=== PATIENT | female | born 1990 | race Two or more races ===

== ENCOUNTER 2020-06-20 08:46 | Outpatient (REF) | payer OTHER, SELFPAY ==
[2020-06-21 10:07] LABS: BV Int Neg Control Negative (Negative); BV Int Pos Control Positive (Positive)
[2020-06-25 11:36] LABS: CT PCR NOT DETECTED (Not Detect.); NG PCR NOT DETECTED (Not Detect.)
[2020-06-27 05:48] LABS: HPV 16 RNA NOT DETECTED (NOT DETECTED); HPV mRNA E6/E7 rflx Detected (Not Detected)
== END 2020-06-20 08:47 | disposition home or self-care (01) ==
LOC: HO.LAB 08:46
PROVIDERS: PCP Internal Medicine; Visit Provider Advanced Practice Midwife
DX: Z01.419 Encounter for gynecological examination (general) (routine) without abnormal findings (principal); N89.8 Other specified noninflammatory disorders of vagina; F17.210 Nicotine dependence, cigarettes, uncomplicated; Z11.8 Encounter for screening for other infectious and parasitic diseases; Z11.3 Encounter for screening for infections with a predominantly sexual mode of transmission
CPT/HCPCS: 87480; 87491; 87510; 87591; 87624; 87625; 87660; 88141; 88142

== ENCOUNTER → 2020-07-22 11:53 | Outpatient (BNVA) | payer OTHER, SELFPAY | PROVIDERS: PCP Internal Medicine; Visit Provider Advanced Practice Midwife | DX: Z76.89 Persons encountering health services in other specified circumstances (principal) ==

== ENCOUNTER 2020-08-16 07:31 | Outpatient (REF) | payer OTHER, SELFPAY | END 2020-08-16 07:32 | disposition home or self-care (01) | LOC: HO.LAB 07:31 | PROVIDERS: Visit Provider Internal Medicine | DX: Z20.822 Contact with and (suspected) exposure to COVID-19 (principal) | CPT/HCPCS: 36415; C9803; U0003 ==

== ENCOUNTER 2020-10-01 08:52 | Outpatient (REF) | payer OTHER, SELFPAY ==
[2020-10-01 14:18] LABS: CT PCR NOT DETECTED (Not Detect.); NG PCR DETECTED (Not Detect.)
[2020-10-02 09:04] LABS: BV Int Neg Control Negative (Negative); BV Int Pos Control Positive (Positive)
== END 2020-10-01 08:53 | disposition home or self-care (01) ==
LOC: HO.LAB 08:52
PROVIDERS: Visit Provider Advanced Practice Midwife
DX: Z01.419 Encounter for gynecological examination (general) (routine) without abnormal findings (principal); N39.0 Urinary tract infection, site not specified; R87.618 Other abnormal cytological findings on specimens from cervix uteri; Z20.2 Contact with and (suspected) exposure to infections with a predominantly sexual mode of transmission; N76.0 Acute vaginitis; B37.3 Candidiasis of vulva and vagina; F17.210 Nicotine dependence, cigarettes, uncomplicated; Z91.013 Allergy to seafood
CPT/HCPCS: 87480; 87491; 87510; 87591; 87660; 99212

== ENCOUNTER → 2020-10-17 13:09 | Outpatient (BNVA) | payer OTHER, SELFPAY | PROVIDERS: PCP Internal Medicine; Visit Provider Advanced Practice Midwife | DX: A54.9 Gonococcal infection, unspecified (principal) | CPT/HCPCS: 96372; 99211; J0696 ==

== ENCOUNTER 2020-10-23 15:52 | Outpatient (REF) | payer OTHER, SELFPAY | END 2020-10-23 15:53 | disposition home or self-care (01) | LOC: HO.LAB 15:52 | PROVIDERS: Visit Provider Internal Medicine | DX: Z20.822 Contact with and (suspected) exposure to COVID-19 (principal) | CPT/HCPCS: C9803; U0003; U0005 ==

== ENCOUNTER 2020-11-20 11:34 | Outpatient (REF) | payer OTHER, MEDICAID, SELFPAY ==
[2020-11-22 20:41] LABS: TS Negative Control Passed; TS Panel A 0; TS Panel B 0; TS Positive Control Passed; TSpotTB Negative (SeeBelow)
== END 2020-11-20 11:35 | disposition home or self-care (01) ==
LOC: HO.HMGCLDS 11:34
PROVIDERS: PCP Internal Medicine; Visit Provider Nurse Practitioner Family
DX: Z02.1 Encounter for pre-employment examination (principal); Z11.1 Encounter for screening for respiratory tuberculosis
CPT/HCPCS: 36415; 86481

== ENCOUNTER 2020-12-17 10:45 | Outpatient (REF) | payer OTHER, SELFPAY ==
[2020-12-17 19:28] LABS: CT PCR NOT DETECTED (Not Detect.); NG PCR NOT DETECTED (Not Detect.)
[2020-12-18 07:42] LABS: HIV AB/AG Nonreactive (Nonreactive); HIV Num 1 0.08 S/CO (0.00-0.99); ~HepC Num1 0.22 S/CO (0.00-0.79); ~Hepatitis C Antibody Nonreactive (Nonreactive)
[2020-12-18 07:50] LABS: HBsAGNum1 0.16 S/CO (0.00-0.99); Hepatitis B Surface Antigen Negative (Negative)
[2020-12-18 08:42] LABS: BV Int Neg Control Negative (Negative); BV Int Pos Control Positive (Positive)
[2020-12-18 08:48] LABS: Syphilis Screen Nonreactive (Nonreactive)
== END 2020-12-17 10:46 | disposition home or self-care (01) ==
LOC: HO.LAB 10:45
PROVIDERS: PCP Internal Medicine; Visit Provider Advanced Practice Midwife
DX: A54.9 Gonococcal infection, unspecified (principal); Z20.2 Contact with and (suspected) exposure to infections with a predominantly sexual mode of transmission
CPT/HCPCS: 36415; 86780; 86803; 87340; 87389; 87480; 87491; 87510; 87591; 87660; 99212

== ENCOUNTER 2021-06-26 15:02 | Outpatient (REF) | payer OTHER, SELFPAY ==
[2021-06-27 01:10] LABS: CT PCR NOT DETECTED (Not Detect.); NG PCR NOT DETECTED (Not Detect.)
[2021-06-27 11:38] LABS: BV Int Neg Control Negative (Negative); BV Int Pos Control Positive (Positive)
[2021-06-30 22:07] LABS: HPV mRNA E6/E7 rflx Not Detected (Not Detected)
== END 2021-06-26 15:03 | disposition home or self-care (01) ==
LOC: HO.LAB 15:02
PROVIDERS: PCP Internal Medicine; Visit Provider Advanced Practice Midwife
DX: Z01.419 Encounter for gynecological examination (general) (routine) without abnormal findings (principal); N89.8 Other specified noninflammatory disorders of vagina; R10.2 Pelvic and perineal pain; N92.0 Excessive and frequent menstruation with regular cycle; N93.9 Abnormal uterine and vaginal bleeding, unspecified; F17.210 Nicotine dependence, cigarettes, uncomplicated; Z20.2 Contact with and (suspected) exposure to infections with a predominantly sexual mode of transmission
CPT/HCPCS: 87480; 87491; 87510; 87591; 87624; 87660; 88142

== ENCOUNTER 2021-06-26 16:02 | Outpatient (REF) | payer OTHER, SELFPAY ==
[2021-06-27 08:34] LABS: HIV AB/AG Nonreactive (Nonreactive); HIV Num 1 0.08 S/CO (0.00-0.99); ~HepC Num1 0.36 S/CO (0.00-0.79); ~Hepatitis C Antibody Nonreactive (Nonreactive)
[2021-06-27 09:08] LABS: Syphilis Screen Nonreactive (Nonreactive)
[2021-06-27 09:10] LABS: HBc Num1 0.11 S/CO (0.00-0.79); Hepatitis B Core Antibody Nonreactive (Nonreactive)
== END 2021-06-26 16:03 | disposition home or self-care (01) ==
LOC: HO.LAB 16:02
PROVIDERS: Visit Provider Advanced Practice Midwife
DX: N89.8 Other specified noninflammatory disorders of vagina (principal); R01.2 Other cardiac sounds; Z20.2 Contact with and (suspected) exposure to infections with a predominantly sexual mode of transmission
CPT/HCPCS: 36415; 86704; 86780; 86803; 87389

== ENCOUNTER 2021-08-12 09:34 | Outpatient (REF) | payer OTHER, SELFPAY ==
[2021-08-12 13:47] LABS: CT PCR NOT DETECTED (Not Detect.); NG PCR NOT DETECTED (Not Detect.)
[2021-08-13 08:58] LABS: BV Int Neg Control Negative (Negative); BV Int Pos Control Positive (Positive)
== END 2021-08-12 09:35 | disposition home or self-care (01) ==
LOC: HO.LAB 09:34
PROVIDERS: PCP Internal Medicine; Visit Provider Advanced Practice Midwife
DX: N89.8 Other specified noninflammatory disorders of vagina (principal); F32.9 Major depressive disorder, single episode, unspecified; F41.9 Anxiety disorder, unspecified
CPT/HCPCS: 87480; 87491; 87510; 87591; 87660; 99212

== ENCOUNTER 2022-03-11 13:47 | Outpatient (REF) | payer OTHER, SELFPAY ==
[2022-03-11 15:09] LABS: Appearance Urine Cloudy; Color Urine Yellow; Glucose Urine UA Negative (Negative); Leukocyte Esterase Urine Large (3+) (Negative); Nitrite Urine Negative (Negative); PH 7.5 (5.0-8.0); Urine Blood Negative (Negative); Urine Ketones Trace mg/dL (Negative); Urine Protein 30 (1+) mg/dL (Neg-Trace)
[2022-03-11 15:12] LABS: Bacteria Urine 4+ (None Seen); Hyaline Casts Urine 0-2 /LPF (0-2); RBC Urine 0-2 /HPF (0-2); Squamous Epithelial Cell Urine 0-2 /HPF (0-2); UACC Culture Trigger YES; WBC Urine >50 /HPF (0-5)
== END 2022-03-11 13:48 | disposition home or self-care (01) ==
LOC: HO.LAB 13:47
PROVIDERS: PCP Internal Medicine; Visit Provider Internal Medicine
DX: R30.0 Dysuria (principal)
CPT/HCPCS: 81001; 87086; 87088; 87186

== ENCOUNTER 2022-05-19 10:14 | Outpatient (REF) | payer OTHER, SELFPAY | END 2022-05-19 10:15 | disposition home or self-care (01) | LOC: HO.LNP 10:14 | PROVIDERS: Visit Provider Advanced Practice Midwife | DX: N89.8 Other specified noninflammatory disorders of vagina (principal); R39.15 Urgency of urination; Z20.2 Contact with and (suspected) exposure to infections with a predominantly sexual mode of transmission | CPT/HCPCS: 99212 ==

== ENCOUNTER 2022-05-19 10:19 | Outpatient (REF) | payer OTHER, SELFPAY ==
[2022-05-19 12:03] LABS: HBc Num1 0.05 S/CO (0.00-0.79); HIV AB/AG Nonreactive (Nonreactive); HIV Num 1 0.08 S/CO (0.00-0.99); Hepatitis B Core Antibody Nonreactive (Nonreactive); ~HepC Num1 0.15 S/CO (0.00-0.79); ~Hepatitis C Antibody Nonreactive (Nonreactive)
[2022-05-19 18:29] LABS: CT PCR NOT DETECTED (Not Detect.); NG PCR NOT DETECTED (Not Detect.)
[2022-05-20 07:57] LABS: Syphilis Screen Nonreactive (Nonreactive)
[2022-05-20 13:06] LABS: BV Int Neg Control Negative (Negative); BV Int Pos Control Positive (Positive)
== END 2022-05-19 10:20 | disposition home or self-care (01) ==
LOC: HO.LAB 10:19
PROVIDERS: PCP Internal Medicine; Visit Provider Advanced Practice Midwife
DX: N89.8 Other specified noninflammatory disorders of vagina (principal); Z20.2 Contact with and (suspected) exposure to infections with a predominantly sexual mode of transmission
CPT/HCPCS: 86704; 86780; 86803; 87389; 87480; 87491; 87510; 87591; 87660

== ENCOUNTER 2022-11-17 09:57 | Outpatient (REF) | payer OTHER, SELFPAY ==
--- NOTE | ~2022-11-17 | XR_ITS ---
EXAMINATION: XR CERVICAL SPINE CLINICAL INFORMATION: Neck pain. COMPARISON: None available. TECHNIQUE: 3 views of the cervical spine were obtained. FINDINGS: There is straightening of the normal cervical lordosis with normal spinal alignment. The vertebral bodies and intervertebral disc spaces are unremarkable. There is no acute fracture. The odontoid process is intact. The soft tissues are unremarkable.. XR/XR cervical spine 3V IMPRESSION: Straightening of the normal cervical lordosis may be secondary to positioning and/or muscle spasm. No acute fracture or significant degenerative changes.
--- NOTE | ~2022-11-17 | XR_ITS ---
EXAMINATION: XR SHOULDER, RIGHT CLINICAL INFORMATION: Right shoulder pain. COMPARISON: None available. TECHNIQUE: Three views of the right shoulder. FINDINGS: The bones and soft tissues are normal. No fracture. Glenohumeral and acromioclavicular alignment is anatomic with normal joint space. No abnormal soft tissue calcifications. XR/XR shoulder RT min 2V IMPRESSION: Unremarkable right shoulder.
== END 2022-11-17 09:58 | disposition home or self-care (01) ==
LOC: HO.HMGCX 09:57
PROVIDERS: PCP Internal Medicine; Visit Provider Nurse Practitioner Family
DX: S46.819A Strain of other muscles, fascia and tendons at shoulder and upper arm level, unspecified arm, initial encounter (principal)
CPT/HCPCS: 72040; 73030

== ENCOUNTER 2023-02-05 09:23 | Outpatient (AMB) | payer OTHER, SELFPAY ==
[2023-02-05 09:54] VITALS: BP 122/80; BMI 26.4
--- NOTE | 2023-02-05 09:54 | A.OFFVIS_ITS ---
Intake Vital Signs 02/05/23 09:54 Height 5 ft 3 in Weight 149 lb BMI 26.4 BP 122/80 Intake Visit Reasons: ? infection Intake Note: weird discharge no color or smell The patient agreed to use of a medical records library professor during this encounter. Scribed for TOMMY Alarcon by Joleen Burger medical records library professor, on 02/05/2023 at 10:16 am EST. Chain Hoist Operator Required: Yes Chain Hoist Operator Language: Barge Hand Name: Estelle JORDAN Information Interpreted: non-clinical & clinical Upholstery Sewer: Upholstery Sewer Present (Estelle) Allergies shellfish derived Allergy (Unknown, Verified 02/05/23 09:57) Anaphylaxis Is last menstrual period known: Yes Last menstrual period: 01/11/23 Post menopausal: No HPI HPI Comments History of Present Illness Details She is here today with complaints of vaginal discharge, along with some internal vaginal odor, she believes her PH levels are high. Admits tender pelvis. No dysuria. PFSH Medical History Scoliosis Tobacco abuse Surgical History History of section History of tubal ligation Family History Mother No problems noted. Father No problems noted. Paternal Grandfather Colon cancer Family/Other Colon cancer Paternal Grandmother Breast cancer Other Mental health disorder Social History Housing: Apartment Alcohol intake: never Patient Tobacco Use Status: Former Tobacco user Quit Date: 1 year ago, Smoked 1 cig daily. Cigarettes Per Day: 1 Substance Use Type: Marijuana service: No Current occupational status: employed Gender identity: Female Female Reproductive History Menstrual Age of Menarche: 7 Duration of menses: 3-5 days Date of last menstrual period: 01/11/23 control method: permanent sterilization Total pregnancies: 2 Full term: 2 Number of Living Children: 2 Date of last pap smear: 06/27/21 (negative) History of abnormal pap smear: Yes (2020 +HPV) Physical Exam Vital Signs: Last Vital Signs BP 122/80 02/05/23 09:54 BMI result Body Mass Index 26.4 Const General: cooperative, healthy appearing, comfortable, no acute distress, well developed, alert and awake Other: slightly tender with uterine palpation at pubic area. General: Yes bladder normal to palpation External Female Exam: normal external appearance and normal appearance of the urethra Speculum Exam - Vagina: normal appearance of the vagina, normal palpation and abnormal vaginal discharge (thin) white and frothy Speculum Exam - Cervix: normal appearance of the cervix and normal palpation Bimanual exam- vagina & uterus: normal bimanual exam, normal palpation, bladder normal to palpation and normal palpation Bimanual Exam- Adnexa, other: normal adnexae and no masses Assessment & Plan Assessment & Plan (1) Vaginal discharge: Code(s): N89.8 - Other specified noninflammatory disorders of vagina Plan: Discussed: Hydrate wel with summer heatl. BV testing and GC/CT panel done today. Await results and treat accordingly. All of her questions and concerns were addressed to the best of my ability and shared decision making. She is agreeable to plan of care. Orders: Orders Bacterial Vaginosis Panel Today B96.89 - Other specified bacterial agents as the cause of diseases classified elsewhere, N76.0 - Acute vaginitis CT NG by PCR Today B96.89 - Other specified bacterial agents as the cause of diseases classified elsewhere, N76.0 - Acute vaginitis Coding Level of Care Code Est Pt Level 3 (15072) Diagnoses Vaginal discharge N89.8
== END 2023-02-05 11:43 | disposition home or self-care (01) ==
LOC: HO.HWS 09:23
PROVIDERS: PCP Internal Medicine; Visit Provider Advanced Practice Midwife
DX: N89.8 Other specified noninflammatory disorders of vagina (principal)
CPT/HCPCS: 99213

== ENCOUNTER 2023-02-05 09:23 | Outpatient (REF) | payer OTHER, SELFPAY ==
[2023-02-05 17:59] LABS: CT PCR NOT DETECTED (Not Detect.); NG PCR NOT DETECTED (Not Detect.)
[2023-02-06 11:48] LABS: BV Int Neg Control Negative (Negative); BV Int Pos Control Positive (Positive)
== END 2023-02-05 09:24 | disposition home or self-care (01) ==
LOC: HO.LNP 09:23
PROVIDERS: PCP Internal Medicine; Visit Provider Advanced Practice Midwife
DX: N76.0 Acute vaginitis (principal); B96.89 Other specified bacterial agents as the cause of diseases classified elsewhere
CPT/HCPCS: 0353U; 87480; 87510; 87660; 99212

== ENCOUNTER 2023-04-01 08:26 | Outpatient (AMB) | payer OTHER, SELFPAY ==
[2023-04-01 08:32] VITALS: BP 110/76; BMI 27.1
--- NOTE | 2023-04-01 08:32 | MHC.OFFVIS ---
Intake Vital Signs 04/01/23 08:32 Height 5 ft 3 in Weight 153 lb BMI 27.1 BP 110/76 Intake Visit Reasons: 4-5 week shantal follow up Intake Note: The patient agreed to use of a medical lead during this encounter. Scribed for TOMMY Alarcon by Joleen Burger medical lead, on 04/01/2023 at 8:58 am EST. Golf Stud Riveter Required: No Information Interpreted: non-clinical & clinical Dining Chair Seat Cushion Trimmer: Dining Chair Seat Cushion Trimmer Present (Odalys) Allergies shellfish derived Allergy (Unknown, Verified 04/01/23 08:32) Anaphylaxis Is last menstrual period known: Yes Last menstrual period: 03/12/23 HPI HPI Comments History of Present Illness Details She is here for SHANTAL for Trichomonas. Reports completing Rx. Currently sexually active; partner has not been tested or treated. Denies vaginal discharge, cramping or pelvic pain. [facility] Medical History Trichomonas contact, treated Scoliosis Tobacco abuse Surgical History History of section History of tubal ligation Family History Mother No problems noted. Father No problems noted. Paternal Grandfather Colon cancer Family/Other Colon cancer Paternal Grandmother Breast cancer Other Mental health disorder Social History Housing: Apartment Alcohol intake: never Patient Tobacco Use Status: Former Tobacco user Quit Date: 1 year ago, Smoked 1 cig daily. Cigarettes Per Day: 1 Substance Use Type: Marijuana service: No Current occupational status: employed Gender identity: Female Female Reproductive History Menstrual Age of Menarche: 7 Date of last menstrual period: 03/12/23 Physical Exam Vital Signs: Last Vital Signs BP 110/76 04/01/23 08:32 BMI result Body Mass Index 27.1 Const General: cooperative, healthy appearing, comfortable, no acute distress, well developed, alert and awake Other: General: Yes bladder normal to palpation External Female Exam: normal external appearance and normal appearance of the urethra Speculum Exam - Vagina: normal appearance of the vagina, normal palpation and abnormal vaginal discharge white Speculum Exam - Cervix: normal appearance of the cervix and normal palpation Bimanual exam- vagina & uterus: normal bimanual exam, normal palpation, bladder normal to palpation and normal palpation Bimanual Exam- Adnexa, other: normal adnexae and no masses Assessment & Plan Assessment & Plan (1) Trichomonas contact, treated: Code(s): Z20.2 - Contact with and (suspected) exposure to infections with a predominantly sexual mode of transmission Plan: Discussed: BV testing done today. Await results and treat accordingly. Advised sexual partner to be tested and treated to avoid reinfection. All of her questions and concerns were addressed to the best of my ability and shared decision making. She is agreeable to plan of care. (2) Vaginal discharge: Code(s): N89.8 - Other specified noninflammatory disorders of vagina Orders: Orders Bacterial Vaginosis Panel Today N89.8 - Other specified noninflammatory disorders of vagina, Z20.2 - Contact with and (suspected) exposure to infections with a predominantly sexual mode of transmission Coding Level of Care Code Est Pt Level 3 (57765) Diagnoses Trichomonas contact, treated Z20.2 Vaginal discharge N89.8
== END 2023-04-01 09:09 | disposition home or self-care (01) ==
PROVIDERS: PCP Internal Medicine; Visit Provider Advanced Practice Midwife
DX: Z20.2 Contact with and (suspected) exposure to infections with a predominantly sexual mode of transmission (principal); N89.8 Other specified noninflammatory disorders of vagina
CPT/HCPCS: 99213

== ENCOUNTER 2023-04-01 08:26 | Outpatient (REF) | payer OTHER, SELFPAY ==
[2023-04-02 11:39] LABS: BV Int Neg Control Negative (Negative); BV Int Pos Control Positive (Positive)
== END 2023-04-01 08:27 | disposition home or self-care (01) ==
LOC: HO.LAB 08:26
PROVIDERS: PCP Internal Medicine; Visit Provider Advanced Practice Midwife
DX: Z20.2 Contact with and (suspected) exposure to infections with a predominantly sexual mode of transmission (principal); N89.8 Other specified noninflammatory disorders of vagina
CPT/HCPCS: 87480; 87510; 87660; 99212

== ENCOUNTER 2024-05-02 14:16 | Outpatient (AMB) | payer OTHER, SELFPAY ==
--- NOTE | 2024-05-02 14:19 | MHC.PC.OV ---
Vital Signs 05/02/24 14:21 Height 5 ft 3 in Weight 154 lb 4 oz BMI 27.3 BP 120/78 Blood Pressure Location Lt brachial Position Sitting Pulse 67 Pulse Source Pulse Oximeter Pulse Oximetry (%) 97 Oxygen Delivery Method Room Air Intake Visit Reasons: Med/[facility] -Anxiety Intake Note: Patient is here to follow up on medication review, rash on left villarreal, Anxiety, constipation. Requesting for referral to psy therapy. Pt decline flu shot today. Validation Scientist Required: Yes Validation Scientist Language: Javascript Front End Developer Name: Maren ([id number]) Information Interpreted: non-clinical & clinical Cardiograph Operator: Not Required per policy Accompanied by: Self / Same As Patient Allergies shellfish derived Allergy (Unknown, Verified 05/02/24 14:31) Anaphylaxis fluoxetine Adverse Reaction (Intermediate, Verified 05/02/24 14:31) Anxiety Medication List - Last Reconciled 05/02/24 by Jaziel De La Vega MD cyclobenzaprine 10 mg PO TID PRN Tobacco use date assessed: 05/02/24 Dental Screening Dental Screen Date: 05/02/24 Did you have a dental visit in the last 12 months?: Yes Did you have a dental problem in the last 6 months where you did not have access to dental care?: No Was dental information given to patient?: Patient has dentist HPI Med/[facility] -Anxiety HPI Details 33 year old overweight female smoker with a history of generalized anxiety disorder and abnormal uterine bleeding. This is the 1st time I am seeing the patient.. Patient was last seen in the office in 05/07/2022 referred to [facility] for depression. [facility] Medical History (Updated 05/02/24 @ 14:59 by Jaziel De La Vega MD) Recurrent major depression Anxiety and depression Vaginal discharge Vaginal odor Pelvic pain in female Heavy menstrual bleeding Gonorrhea contact, treated Dysuria UTI (urinary tract infection) Bacterial vaginosis Trichomoniasis Trichomonas contact, treated Scoliosis Tobacco abuse Surgical History History of section History of tubal ligation Family History (Updated 05/02/24 @ 14:50 by Jaziel De La Vega MD) Mother No problems noted. Father No problems noted. Paternal Grandfather Colon cancer Family/Other Colon cancer Paternal Grandmother Breast cancer Paternal Aunt Breast cancer Other Mental health disorder Social History (Updated 05/02/24 @ 14:52 by Jaziel De La Vega MD) Housing: Apartment Alcohol intake: never Patient Tobacco Use Status: Former Tobacco user Cigarettes Per Day: 1 Years Smoked: stopped cigarettes 2021, smoke weed 2019 e-Cigarette/Vaping Use: Never Used Second Hand Smoke Exposure: Yes Substance Use Type: Marijuana service: No Current occupational status: employed Gender identity: Female Cognitive needs: No Hearing needs: No Vision needs: Yes (Glasses) Female Reproductive History Menstrual Age of Menarche: 7 Questionnaire PHQ-9 Over the last 2 weeks, how often have you been bothered by any of the following problems? 1. Little interest or pleasure in doing things: nearly every day 2. Feeling down, depressed, or hopeless: nearly every day (with Mood swings) 3. Trouble falling or staying asleep, or sleeping too much: not at all 4. Feeling tired or having little energy: nearly every day 5. Poor appetite or overeating: nearly every day 6. Feeling bad about yourself - or that you are a failure or have let yourself or your family down: not at all 7. Trouble concentrating on things, such as reading the newspaper or watching television: nearly every day 8. Moving or speaking so slowly that other people could have noticed. Or the opposite - being so fidgety or restless that you have been moving around a lot more than usual: more than half the days 9. Thoughts that you would be better off or of hurting yourself in some way: not at all Total score: 17 Depression Screening Interpretation: Positive Depression Screening Done: Yes Source: Developed by Drs. Nikhil Pena, Tammy Méndez, Ricci Dowling and colleagues, with an educational chato from [employer]. Thrive Questionnaire Date Thrive assessed: 05/02/24 I am a: Patient What is your living situation today?: I have a steady place to live Within the past 12 months, did the food you bought not last and you didn't have the money to get more?: Never true Within the past 12 months, did you worry whether your food would run out before you got money to buy more?: Never true Do you have trouble paying for medicines?: No Do you have trouble getting transportation to medical appointments?: No Do you have trouble paying your heating and electricity bill?: No Do you have trouble taking care of your child, family member or friend?: No Do you have trouble with day-to-day activities such as bathing, preparing meals, shopping, managing finances, etc.?: No Are you currently unemployed and looking for a job?: No Are you interested in more education?: No Currently or been in a relationship where the following occur: No concerns reported THRIVE Score: 0 AUDIT C Alcohol Use Questionnaire (AUDIT-C) 1. How often do you have a drink containing alcohol?: Never Total Score: 0 HUSSAIN-7 AMB Questionnaire HUSSAIN-7 Date HUSSAIN - 7 assessed: 05/02/24 Feeling nervous, anxious, or on edge: 3 = Nearly every day Not being able to stop or control worryin = Nearly every day Worrying too much about different things: 3 = Nearly every day Trouble relaxin = Nearly every day Being so restless that it is hard to sit still: 3 = Nearly every day Becoming easily annoyed or irritable: 3 = Nearly every day Feeling afraid as if something awful might happen: 3 = Nearly every day Total HUSSAIN-7 score (0-4 normal; 5-9 mild; 10-14 moderate; 15-21 severe): 21 Source: Developed by Drs. Nikhil Pena, Tammy Méndez, Ricci Dowling and colleagues, with an educational chato from [employer]. Physical exam (Primary Care) Vital Signs: Last Vital Signs Pulse 67 05/02/24 14:21 BP 120/78 05/02/24 14:21 Pulse Ox 97 05/02/24 14:21 Oxygen Delivery Method Room Air 05/02/24 14:21 BMI result Body Mass Index 27.3 Tobacco/Smoking Status: Tobacco use Status Tobacco use date assessed 05/02/24 05/02/24 14:41 Patient Tobacco Use Status Former Tobacco user 05/02/24 14:52 Tobacco use type 11/22/23 12:04 e-Cigarette/Vaping Use Never Used 05/02/24 14:52 PHQ-9: PHQ-9 Score PHQ-9: Total score 17 05/02/24 14:42 Depression Screening Interpretation: Positive Thrive Assessment: Date of Thrive Assessment Date Thrive assessed 05/02/24 05/02/24 14:41 Currently or been in a relationship where the following occur: No concerns reported Const General: alert; No acute distress Eyes Conjunctivae: conjunctivae normal Resp Auscultation: clear to auscultation bilaterally Cardio Rate: regular rate Rhythm: regular rhythm GI Inspection: Yes normal to inspection Extrem General: Yes normal to inspection and No edema Coding Level of Care Code Est Pt Level 4 (70605) Diagnoses Overweight (BMI 25.0-29.9) E66.3 Chronic left-sided low back pain without sciatica M54.50; G89.29 Back pain laterality: left Chronicity: chronic Sciatica presence: without sciatica Eczema L30.9 Generalized anxiety disorder F41.1 Constipation K59.00 Assessment & Plan Assessment & Plan (1) Overweight (BMI 25.0-29.9): Code(s): E66.3 - Overweight Category: Medical Plan: Diet and exercise (2) Low back pain: Code(s): M54.50 - Low back pain, unspecified Category: Medical Qualifiers: Back pain laterality: left Chronicity: chronic Sciatica presence: without sciatica Qualified Code(s): M54.50 - Low back pain, unspecified; G89.29 - Other chronic pain Plan: muscle relaxant sent and advsied PT (3) Eczema: Comment: bilateral leg and L wrist Code(s): L30.9 - Dermatitis, unspecified Category: Medical Plan: steroid cream sent and limit to 2 week (4) Generalized anxiety disorder: Code(s): F41.1 - Generalized anxiety disorder Category: Medical Plan: referral done for psychiatric evaluation (5) Constipation: Code(s): K59.00 - Constipation, unspecified Category: Medical Plan: Three rules for constipation 1. Diet need to have a high fiber diet less of meat 2. Increase oral fluids 3. Exercise Orders: Orders PT Evaluation and Treatment Today G89.29 - Other chronic pain, M54.50 - Low back pain, unspecified Referrals Psychiatry Outpatient Consultation Service F41.1 - Generalized anxiety disorder Medications: New triamcinolone acetonide 0.5% 1 appl topical BID 30 grams 0RF L30.9 - Dermatitis, unspecified sennosides-docusate sodium 8.6-50 mg (Senna Plus) 2 tab-caps (2 x 8.6-50 mg) PO BEDTIME 60 caps 1RF K59.00 - Constipation, unspecified Refilled cyclobenzaprine 10 mg PO TID PRN 60 tabs 0RF muscle spasm L30.9 - Dermatitis, unspecified
[2024-05-02 14:21] VITALS: BP 120/78; PULSE 67; O2SAT 97; BMI 27.3
== END 2024-05-02 15:02 | disposition home or self-care (01) ==
PROVIDERS: PCP Internal Medicine; Visit Provider Internal Medicine
DX: E66.3 Overweight (principal); M54.50 Low back pain, unspecified; G89.29 Other chronic pain; L30.9 Dermatitis, unspecified; F41.1 Generalized anxiety disorder; K59.00 Constipation, unspecified

== ENCOUNTER → 2024-05-02 14:16 | Outpatient (BNVA) | payer OTHER, SELFPAY | PROVIDERS: PCP Internal Medicine; Visit Provider Internal Medicine | DX: E66.3 Overweight (principal); M54.50 Low back pain, unspecified; G89.29 Other chronic pain; L30.9 Dermatitis, unspecified; F41.1 Generalized anxiety disorder; K59.00 Constipation, unspecified | CPT/HCPCS: 96127; 99212 ==

== ENCOUNTER 2024-06-14 13:51 | Outpatient (AMB) | payer OTHER, SELFPAY ==
[2024-06-14 13:57] VITALS: BP 110/60; BMI 27.6
--- NOTE | 2024-06-14 13:57 | MHC.OFFVIS ---
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 Automotive Product Specialist Services: Automotive Product Specialist Present Information Interpreted: clinical only Manager Home Improvement: Manager Home Improvement Present Allergies shellfish derived Allergy (Unknown, Verified 06/14/24 13:57) Anaphylaxis fluoxetine Adverse Reaction (Intermediate, Verified 06/14/24 13:57) Anxiety Medication List - Last Reconciled 06/14/24 by Lori Lemus CNM triamcinolone acetonide 0.5% 1 appl topical BID Is last menstrual period known: Yes Last menstrual period: 05/25/24 HPI HPI 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 She is not having any special concerns but she wants to get checked because she has had a couple of appointments cancel and she wants to get checked. She is with her current partner for about a year she does not have any particular worries about STIs but she would like to be checked she did have a history STIs in the past but she had a very different discharge then. She had her tubes tied so she does not need to worry about control. She gets regular periods and her last period was May 25.. 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 She feels she could eat better. She recently saw Dr. Robles for anxiety and is awaiting a referral for evaluation for that. COUNTS INCLUDE 234 BEDS AT THE [facility] Medical History Recurrent major depression Anxiety and depression Vaginal discharge Vaginal odor Pelvic pain in female Heavy menstrual bleeding Gonorrhea contact, treated Dysuria UTI (urinary tract infection) Bacterial vaginosis Trichomoniasis Trichomonas contact, treated Scoliosis Tobacco abuse Surgical History History of section History of tubal ligation Family History Mother No problems noted. Father No problems noted. Paternal Grandfather Colon cancer Family/Other Colon cancer Paternal Grandmother Breast cancer Paternal Aunt Breast cancer Other Mental health disorder Social History Housing: Apartment Alcohol intake: never Patient Tobacco Use Status: Former Tobacco user Cigarettes Per Day: 1 Years Smoked: stopped cigarettes 2021, smoke weed 2019 e-Cigarette/Vaping Use: Never Used Second Hand Smoke Exposure: Yes Substance Use Type: Marijuana service: No Current occupational status: employed Gender identity: Female Cognitive needs: No Hearing needs: No Vision needs: Yes (Glasses) Female Reproductive History Menstrual Age of Menarche: 7 Duration of menses: 3-5 days Date of last menstrual period: 05/25/24 control method: permanent sterilization Total pregnancies: 2 Full term: 2 Physical Exam Vital Signs: Last Vital Signs BP 110/60 06/14/24 13:57 BMI result Body Mass Index 27.6 Const General: healthy appearing, comfortable, no acute distress, well developed and alert Nutritional Appearance: average body habitus Orientation/consciousness: patient oriented x3 Limitations: no limitations HEENT Head: Yes normocephalic Neck Neck: Yes normal visual inspection Chest Chest palpation & inspection: normal inspection of the chest Breast/axilla inspection: normal inspection of the breasts and normal inspection of the axillae Breast/axilla palpation: normal palpation of the breasts and normal palpation of the axillae Resp Effort & Inspection: normal respiratory effort GI Inspection: Yes normal to inspection, No Abdominal wall edema and No distended Palpation (GI): Soft to palpation and nontender Other: External exam within normal limits vagina is pink and moist cervix nulliparous pink smooth healthy appearing normal clear to white scant discharge Uterus is small mobile nontender midposition to anteverted firm adnexa nontender nonenlarged extremely good tone with Kegel. General: Yes bladder normal to palpation External Female Exam: normal external appearance and normal appearance of the urethra Speculum Exam - Vagina: normal appearance of the vagina, normal palpation and normal vaginal discharge Speculum Exam - Cervix: normal appearance of the cervix, normal palpation and nontender Bimanual exam- vagina & uterus: normal bimanual exam, normal palpation, uterine size normal, bladder normal to palpation, consistency normal, normal palpation, uterine mobility normal, uterine shape normal, No Cervical tenderness present, non-tender and no cervical motion tenderness Bimanual Exam- Adnexa, other: normal adnexae, no masses, normal and No adnexal tenderness Neuro General: patient oriented x3 Results Reviewed Results Reviewed: Name: Tiff Grover Age/Sex: 30/F Attending: Chanelle Yusuf CNM : 1990 Submitted by: Chanelle Yusuf CNM Copies to: Jaziel De La Vega MD MR #: [id number] Status: DEP REF Collected: 06/26/21 Location: .LAB Received: 06/27/21 Interpretation General Category: Negative for intraepithelial lesion/ malignancy. Adequacy: Endocervical component present. Interpretation: Reactive cellular changes. HPV mRNA E6/E7: NOT DETECTED This assay detects E6/E7 viral messenger RNA (mRNA) from 14 high-risk HPV types (16, 18, 31, 33, 35, 39, 45, 51, 52, 56, 58, 59, 66, 68) HPV testing performed by [facility], [place], [place]. See reference laboratory portion of the EMR for entire report. Clinical Information LMP: 06/15/21 Previous PAP test: 06/21/20, HPV+ Material Received ThinPrep- Cervical Copies To Chanelle Yusuf CNM [address] [place] [address] [address]. [address] [place] [address] Jaziel De La Vega MD [address] [place] [address] [address]. [address] [place] [address] Electronically Signed By: Kasie Mcdonnell 07/07/21 7559 The Pap Test is a screening procedure with the inherent possibility of both false negative and false positive results. Results should be interpreted in the context of historic and current clinical findings. Reliability of the Pap Test is enhanced by performing the test on a regular repetitive basis. Patient: Tiff Grover Age/Sex: 30/F MR#: [id number] Page 1 of 1 Name: Tiff Grover Specimen #: [id number] Age/Sex: 29/F Attending: Chanelle Yusuf CNM : 1990 Submitted by: Chanelle Yusuf CNM Collected: 06/20/20 MR #: [id number] Received: 06/21/20 Status: [facility] REF Location: [facility] Interpretation General Category: Negative for intraepithelial lesion/malignancy. Adequacy: Endocervical component present. Interpretation: Inflammation and blood with associated cellular changes. HPV mRNA E6/E7: DETECTED This assay detects E6/E7 viral messenger RNA (mRNA) from 14 high-risk HPV types (16, 18, 31, 33, 35, 39, 45, 51, 52, 56, 58, 59, 66, 68) HPV Type 16 RNA: Not Detected HPV Type 18/45 RNA: Not Detected HPV testing performed by [facility], [place], [place]. See reference laboratory portion of the EMR for entire report. Clinical Information LMP: 06/20/20 Previous PAP test: 2017, wnl Material Received ThinPrep cervical Electronically Signed By: Jonnie Cleary MD 07/10/20 6668 The Pap Test is a screening procedure with the inherent possibility of both false negative and false positive results. Results should be interpreted in the context of historic and current clinical findings. Reliability of the Pap Test is enhanced by performing the test on a regular repetitive basis. Patient: Tiff Grover Age/Sex: 29/F MR#: [id number] Page 1 of 1 Assessment & Plan Assessment & Plan (1) Abnormal Papanicolaou smear of cervix with positive human papilloma virus (HPV) test: Code(s): R87.618 - Other abnormal cytological findings on specimens from cervix uteri Category: Medical (2) Encounter for annual routine gynecological examination: Code(s): Z01.419 - Encounter for gynecological examination (general) (routine) without abnormal findings Category: Medical (3) Overweight (BMI 25.0-29.9): Code(s): E66.3 - Overweight Category: Medical (4) Encounter for screening examination for sexually transmitted disease: Code(s): Z11.3 - Encounter for screening for infections with a predominantly sexual mode of transmission Category: Medical (5) Urinary retention with incomplete bladder emptying: Code(s): R33.9 - Retention of urine, unspecified Category: Medical Plan -----Discussed in this visit the following: healthy balanced diet, regular and consistent exercise, getting recommended health screens, doing the best she can for her particular health concerns, kegel exercises, pap smear screening and followup recommendations, mammography screening and SBE, normal changes in cycles in her life stage--- . I offered her blood tests for checked for STIs and she accepted she may go to the lab now. She has several tattoos on her arms and abdomen and she now regrets those. At the end of the exam she shared that sometimes she notes that she has needing to urinate very frequently and she has urgency when she goes I asked her if she has a tendency to hold her urine for long periods of time and she readily admitted that she thinks that that is with an issue is in that she is not fully emptying and she needs to void again very frequently to fully empty her bladder. I suggested that is this problem continue she certainly could ask her primary care provider for Urology referral but 1 very helpful thing to do be to urge herself to go pee every couple of hours or so so she is not holding her urine for long periods time. She will work at this. She has extremely good muscle tone Kegel so PT probably would not be of benefit. rtc 1 yr Orders: Orders Hepatitis C Antibody Today E66.3 - Overweight, R87.618 - Other abnormal cytological findings on specimens from cervix uteri, Z01.419 - Encounter for gynecological examination (general) (routine) without abnormal findings, Z11.3 - Encounter for screening for infections with a predominantly sexual mode of transmission HIV Ab/Ag Today E66.3 - Overweight, R87.618 - Other abnormal cytological findings on specimens from cervix uteri, Z01.419 - Encounter for gynecological examination (general) (routine) without abnormal findings, Z11.3 - Encounter for screening for infections with a predominantly sexual mode of transmission Syphilis Screen Today E66.3 - Overweight, R87.618 - Other abnormal cytological findings on specimens from cervix uteri, Z01.419 - Encounter for gynecological examination (general) (routine) without abnormal findings, Z11.3 - Encounter for screening for infections with a predominantly sexual mode of transmission Hepatitis B Surface Antigen Today E66.3 - Overweight, R87.618 - Other abnormal cytological findings on specimens from cervix uteri, Z01.419 - Encounter for gynecological examination (general) (routine) without abnormal findings, Z11.3 - Encounter for screening for infections with a predominantly sexual mode of transmission Coding Level of Care Code Est Pt Prev Care 18-39y(00280) Diagnoses Abnormal Papanicolaou smear of cervix with positive human papilloma virus (HPV) test R87.618 Encounter for annual routine gynecological examination Z01.419 Overweight (BMI 25.0-29.9) E66.3 Encounter for screening examination for sexually transmitted disease Z11.3 Urinary retention with incomplete bladder emptying R33.9
== END 2024-06-14 14:58 | disposition home or self-care (01) ==
LOC: HO.HWSM 13:51
PROVIDERS: PCP Internal Medicine; Visit Provider Advanced Practice Midwife
DX: Z01.419 Encounter for gynecological examination (general) (routine) without abnormal findings (principal); R87.618 Other abnormal cytological findings on specimens from cervix uteri; E66.3 Overweight; Z11.3 Encounter for screening for infections with a predominantly sexual mode of transmission; R33.9 Retention of urine, unspecified
CPT/HCPCS: 99395

== ENCOUNTER 2024-06-14 13:51 | Outpatient (REF) | payer OTHER, SELFPAY | END 2024-06-14 13:52 | disposition home or self-care (01) | LOC: HO.LAB 13:51 | PROVIDERS: PCP Internal Medicine; Visit Provider Advanced Practice Midwife | DX: Z01.419 Encounter for gynecological examination (general) (routine) without abnormal findings (principal); R87.618 Other abnormal cytological findings on specimens from cervix uteri; E66.3 Overweight; Z11.3 Encounter for screening for infections with a predominantly sexual mode of transmission; R33.9 Retention of urine, unspecified | CPT/HCPCS: 99395 ==

== ENCOUNTER 2024-06-14 14:53 | Outpatient (REF) | payer OTHER, SELFPAY ==
[2024-06-15 02:35] LABS: CT PCR NOT DETECTED (Not Detect.); NG PCR NOT DETECTED (Not Detect.)
[2024-06-15 08:31] LABS: HBsAGNum1 0.42 S/CO (0.00-0.99); HIV AB/AG Nonreactive (Nonreactive); HIV Num 1 0.06 S/CO (0.00-0.99); Hepatitis B Surface Antigen Negative (Negative); ~Hepatitis C Antibody Nonreactive (Nonreactive)
[2024-06-15 08:34] LABS: Syphilis Screen Nonreactive (Nonreactive)
[2024-06-15 10:07] LABS: Bacterial Vaginosis PCR POSITIVE (Negative); Candida Group PCR NOT DETECTED (Not Detect); Candida glab krusei PCR NOT DETECTED (Not Detect); Trichomonas vaginalis PCR NOT DETECTED (Not Detect)
[2024-06-19 10:53] LABS: HPV 16,18/45 See PAP report
== END 2024-06-14 14:54 | disposition home or self-care (01) ==
LOC: HO.HHCL 14:53
PROVIDERS: Visit Provider Advanced Practice Midwife
DX: Z01.419 Encounter for gynecological examination (general) (routine) without abnormal findings (principal); R87.618 Other abnormal cytological findings on specimens from cervix uteri; E66.3 Overweight; Z11.3 Encounter for screening for infections with a predominantly sexual mode of transmission; N89.8 Other specified noninflammatory disorders of vagina; Z20.2 Contact with and (suspected) exposure to infections with a predominantly sexual mode of transmission
CPT/HCPCS: 0352U; 36415; 86780; 86803; 87340; 87389; 87491; 87591; 87624; 88175

== ENCOUNTER 2024-06-27 15:08 | Outpatient (AMB) | payer OTHER, SELFPAY ==
--- NOTE | 2024-06-27 15:16 | MHC.OFFVIS ---
Vital Signs 06/27/24 15:19 BP 110/64 Intake Visit Reasons: Colposcopy Communications Marketing Intern Required: Yes Communications Marketing Intern Language: Sand Conditioner Machine Services: Communications Marketing Intern Present (in person) Communications Marketing Intern Name: NIKKI Villa Information Interpreted: non-clinical & clinical Speeder Machine Operator: Speeder Machine Operator Present (Estelle Hernandez NIKKI Benavidez) Accompanied by: Spouse Allergies shellfish derived Allergy (Unknown, Verified 06/27/24 15:21) Anaphylaxis fluoxetine Adverse Reaction (Intermediate, Verified 06/27/24 15:21) Anxiety HPI Comments Details: Presenting for abnormal Pap smear showing ASCUS can not exclude high-grade IRINEO HPV 16 positive /HPV 18 negative [facility] Medical History Recurrent major depression Anxiety and depression Vaginal discharge Vaginal odor Pelvic pain in female Heavy menstrual bleeding Gonorrhea contact, treated Dysuria UTI (urinary tract infection) Bacterial vaginosis Trichomoniasis Trichomonas contact, treated Scoliosis Tobacco abuse Surgical History History of section History of tubal ligation Family History Mother No problems noted. Father No problems noted. Paternal Grandfather Colon cancer Family/Other Colon cancer Paternal Grandmother Breast cancer Paternal Aunt Breast cancer Other Mental health disorder Social History Housing: Apartment Alcohol intake: never Patient Tobacco Use Status: Former Tobacco user Cigarettes Per Day: 1 Years Smoked: stopped cigarettes 2021, smoke weed 2019 e-Cigarette/Vaping Use: Never Used Second Hand Smoke Exposure: Yes Substance Use Type: Marijuana service: No Current occupational status: employed Gender identity: Female Cognitive needs: No Hearing needs: No Vision needs: Yes (Glasses) Female Reproductive History Menstrual Age of Menarche: 7 Review of Systems Const All systems reviewed & are unremarkable except as noted in HPI and below Reports as per HPI and Reports no additional complaints GI Reports no additional complaints Reports no additional complaints Physical Exam Vital Signs: Last Vital Signs BP 110/64 06/27/24 15:19 Office Procedures Colposcopy Colposcopy: Pre-Procedure Counseling: Before beginning the procedure, I conducted comprehensive counseling with the patient. We thoroughly discussed the procedure itself, including its details, alternatives, and all associated risks. This included but not limited to the following complications such as bleeding, infection, and injury to the vagina, bladder, and vessels, as well as the potential need for transfusion with all its associated risks. Subsequently, the patient sign the consent. Pap smear result: ASCUS can not exclude high-grade HPV 16 positive/HPV 18 negative. Urine test in office = Negative Procedure: During the procedure, the following steps were performed: A speculum was inserted, and acetic acid was applied. Colposcopy was conducted, allowing visualization of the transformation zone. Acetowhite lesions were identified at the 5+6+7+12 o'clock position. Cervical biopsies were obtained from the 5+6+7+12 o'clock position, followed by an endocervical curettage (ECC). Vaginoscopy of the upper vagina revealed no evidence of aceto-white lesions. Hemostasis was achieved using Monsel solution, and the patient tolerated the procedure well. Post-Procedure Instructions: The patient was advised to promptly contact the office or the after hours answering service or go to the emergency room if experiencing a temperature exceeding 100.4?F, abdominal pain, nausea/vomiting, or bleeding. Additionally, the patient was instructed to abstain from vaginal intercourse and bathtub use. The patient confirmed understanding of these instructions. Discharge Instructions: The patient was instructed to schedule a follow-up appointment in 2 weeks for further evaluation and management. Please note that this note was generated using a voice recognition program, and errors may have occurred during medical transcription supervisor. [id number] of cervix including upper vagina with biopsy and ECC Procedure code (CPT) selection complete Assessment & Plan Assessment & Plan (1) Pap smear cannot exclude high grade squamous intraepithelial lesion (ASC-H): Comment: HPV 16 positive/HPV 18 negative Code(s): R87.610 - Atypical squamous cells of undetermined significance on cytologic smear of cervix (ASC-US) Category: Medical Plan: Discussed with the patient the result of her abnormal pap, its significance, risk of progression, persistence, and regression. the false positive/negative rate of a Pap smear as a screening test in detecting cervical cancer and the indication for a diagnostic test -colposcopy, biopsy, endocervical curettage. The patient verbalized understanding and agreed with the plan, all questions answered. Colpo/biopsy/ECC done, see procedure note Orders: Orders AMB Colposcopy Today R87.610 - Atypical squamous cells of undetermined significance on cytologic smear of cervix (ASC-US) Coding Level of Care Code Procedure Only Diagnoses Pap smear cannot exclude high grade squamous intraepithelial lesion (ASC-H) R87.610 CPT Codes Colposcopy - CPT: 39646-[id number] of cervix including upper vagina with biopsy and ECC ([id number])
[2024-06-27 15:19] VITALS: BP 110/64
== END 2024-06-27 15:44 | disposition home or self-care (01) ==
PROVIDERS: PCP Internal Medicine; Visit Provider Obstetrics & Gynecology
DX: R87.610 Atypical squamous cells of undetermined significance on cytologic smear of cervix (ASC-US) (principal); Z32.02 Encounter for pregnancy test, result negative
CPT/HCPCS: 57454

== ENCOUNTER 2024-06-27 15:08 | Outpatient (REF) | payer OTHER, SELFPAY | END 2024-06-27 15:09 | disposition home or self-care (01) | LOC: HO.LNP 15:08 | PROVIDERS: PCP Internal Medicine; Visit Provider Obstetrics & Gynecology | DX: R87.610 Atypical squamous cells of undetermined significance on cytologic smear of cervix (ASC-US) (principal) | CPT/HCPCS: 57454; 81025; 88305; 88342; 88360 ==

== ENCOUNTER 2024-07-04 15:34 | Outpatient (AMB) | payer OTHER, SELFPAY ==
--- NOTE | 2024-07-04 15:35 | MHC.OFFVIS ---
Vital Signs 07/04/24 15:36 Height 5 ft 3 in Weight 156 lb BMI 27.6 Intake Visit Reasons: colpo results Outcomes Specialist Required: Yes Outcomes Specialist Language: Regrind Mill Operator Services: Outcomes Specialist Present (in person) Outcomes Specialist Name: Estelle JORDAN Accompanied by: Spouse Allergies shellfish derived Allergy (Unknown, Verified 07/04/24 15:40) Anaphylaxis fluoxetine Adverse Reaction (Intermediate, Verified 07/04/24 15:40) Anxiety HPI Comments Details: Presenting post colpo for follow-up. The patient is doing well with no complaints. The pathology showed the following: A. Endocervix, curettage: Small superficial fragments of endocervical mucosa within normal limits. B. Cervix, 5 o'clock, biopsy: Squamous mucosa and endocervical epithelium within normal limits. C. Cervix, 6 o'clock, biopsy: Inflamed squamous and endocervical mucosa with reactive changes. D. Cervix, 7 o'clock, biopsy: Squamous mucosa and endocervical epithelium within normal limits. E. Cervix, 12 o'clock, biopsy: Inflamed squamous and endocervical mucosa with reactive changes. COMMENT: The atypical cells in the patient's recent Pap/cytology specimen ([id number]; ASC-H with positive HPV 16) are not definitively represented in the current samples. Pap was ASC-H HPV 16 positive [facility] Medical History Recurrent major depression Anxiety and depression Vaginal discharge Vaginal odor Pelvic pain in female Heavy menstrual bleeding Gonorrhea contact, treated Dysuria UTI (urinary tract infection) Bacterial vaginosis Trichomoniasis Trichomonas contact, treated Scoliosis Tobacco abuse Surgical History History of section History of tubal ligation Family History Mother No problems noted. Father No problems noted. Paternal Grandfather Colon cancer Family/Other Colon cancer Paternal Grandmother Breast cancer Paternal Aunt Breast cancer Other Mental health disorder Social History Housing: Apartment Alcohol intake: never Patient Tobacco Use Status: Former Tobacco user Cigarettes Per Day: 1 Years Smoked: stopped cigarettes 2021, smoke weed 2019 e-Cigarette/Vaping Use: Never Used Second Hand Smoke Exposure: Yes Substance Use Type: Marijuana service: No Current occupational status: employed Gender identity: Female Cognitive needs: No Hearing needs: No Vision needs: Yes (Glasses) Female Reproductive History Menstrual Age of Menarche: 7 Review of Systems Const All systems reviewed & are unremarkable except as noted in HPI and below Reports as per HPI and Reports no additional complaints GI Reports no additional complaints Reports no additional complaints Physical Exam Vital Signs: BMI result Body Mass Index 27.6 Assessment & Plan Assessment & Plan (1) Abnormal Papanicolaou smear of cervix with positive human papilloma virus (HPV) test: Comment: 06/14/2024 Pap shows ASC -H HPV 16 positive Colpo biopsy ECC negative Code(s): R87.618 - Other abnormal cytological findings on specimens from cervix uteri Category: Medical Plan: Discussed with the patient the results the pathology, it sensitivity, specificity, false-positive false-negative rate. Discussed with the patient options of treatment including co testing in a year or LEEP cone with post cone ECC as a diagnostic/therapeutic next step. All pros and cons, risks and benefits of each were discussed with the patient, the patient decided to proceed with repeat to co testing in a year . Instructions given the patient to schedule co testing appointment in 1 year. All questions answered, the patient verbalized understanding and signed the consent. Coding Level of Care Code Est Pt Level 3 (46824) Diagnoses Abnormal Papanicolaou smear of cervix with positive human papilloma virus (HPV) test R87.618
[2024-07-04 15:36] VITALS: BMI 27.6
== END 2024-07-04 15:55 | disposition home or self-care (01) ==
LOC: HO.HWS 15:34
PROVIDERS: PCP Internal Medicine; Visit Provider Obstetrics & Gynecology
DX: R87.618 Other abnormal cytological findings on specimens from cervix uteri (principal)
CPT/HCPCS: 99213

== ENCOUNTER → 2024-07-04 15:34 | Outpatient (BNVA) | payer OTHER, SELFPAY | PROVIDERS: PCP Internal Medicine; Visit Provider Obstetrics & Gynecology | DX: R87.618 Other abnormal cytological findings on specimens from cervix uteri (principal) | CPT/HCPCS: 99212 ==

== ENCOUNTER 2025-03-29 11:15 | Outpatient (REF) | payer OTHER, SELFPAY ==
[2025-03-29 20:42] LABS: Bacterial Vaginosis PCR POSITIVE (Negative); Candida Group PCR NOT DETECTED (Not Detect); Candida glab krusei PCR NOT DETECTED (Not Detect); Trichomonas vaginalis PCR NOT DETECTED (Not Detect)
[2025-03-29 22:24] LABS: CT PCR NOT DETECTED (Not Detect.); NG PCR NOT DETECTED (Not Detect.)
== END 2025-03-29 11:16 | disposition home or self-care (01) ==
LOC: HO.LNP 11:15
PROVIDERS: PCP Internal Medicine; Visit Provider Advanced Practice Midwife
DX: L73.8 Other specified follicular disorders (principal); R35.0 Frequency of micturition; N89.8 Other specified noninflammatory disorders of vagina; Z11.8 Encounter for screening for other infectious and parasitic diseases; Z11.3 Encounter for screening for infections with a predominantly sexual mode of transmission; Z11.2 Encounter for screening for other bacterial diseases; Z98.51 Tubal ligation status
CPT/HCPCS: 81003; 81515; 87491; 87591; 99212

== ENCOUNTER 2025-03-29 11:15 | Outpatient (AMB) | payer OTHER, SELFPAY ==
--- NOTE | 2025-03-29 11:16 | MHC.OFFVIS ---
Vital Signs 03/29/25 11:25 Height 5 ft 3 in Weight 155 lb BMI 27.5 Intake Visit Reasons: vaginal odor Intake Note: here for vaginal odor ? and a bump on labia Inspector Sheet Metal Parts Services: Inspector Sheet Metal Parts Present (voice box) Information Interpreted: non-clinical & clinical Eight Section Blower: Eight Section Blower Present (Kaylene) Accompanied by: Self / Same As Patient Allergies shellfish derived Allergy (Unknown, Verified 03/29/25 11:27) Anaphylaxis fluoxetine Adverse Reaction (Intermediate, Verified 03/29/25 11:27) Anxiety Medication List - Last Reconciled 03/29/25 by Tori Tai LPN triamcinolone acetonide 0.5% 1 appl topical BID Is last menstrual period known: Yes Last menstrual period: 03/02/25 Do you need a note to return to daycare/school/sports/work: No HPI Comments Details: Patient is here today with concerns for external vulvar bump, and frequency of urination. She reports menses are regular somewhat heavier. She has a follow up annual exam and Pap smear in June, concerned about her prior biopsy and diagnosis of HPV. [facility] Medical History Recurrent major depression Anxiety and depression Vaginal discharge Vaginal odor Pelvic pain in female Heavy menstrual bleeding Gonorrhea contact, treated Dysuria UTI (urinary tract infection) Bacterial vaginosis Trichomoniasis Trichomonas contact, treated Scoliosis Tobacco abuse Surgical History History of section History of tubal ligation Family History Mother No problems noted. Father No problems noted. Paternal Grandfather Colon cancer Family/Other Colon cancer Paternal Grandmother Breast cancer Paternal Aunt Breast cancer Other Mental health disorder Social History Housing: Apartment Alcohol intake: never Patient Tobacco Use Status: Former Tobacco user Cigarettes Per Day: 1 Years Smoked: stopped cigarettes 2021, smoke weed 2019 e-Cigarette/Vaping Use: Never Used Second Hand Smoke Exposure: Yes Substance Use Type: Marijuana service: No Current occupational status: employed Gender identity: Female Cognitive needs: No Hearing needs: No Vision needs: Yes (Glasses) Female Reproductive History Menstrual Age of Menarche: 7 Date of last menstrual period: 03/02/25 History of STI: Yes (02/05/23 +Trich) Review of Systems Const All systems reviewed & are unremarkable except as noted in HPI and below Physical Exam Vital Signs: BMI result Body Mass Index 27.5 Const General: cooperative, healthy appearing and no acute distress Orientation/consciousness: patient oriented x3 GI Inspection: Yes normal to inspection Palpation (GI): Soft to palpation and Other GI palpation findings present (Nontender) Rectal Exam - Female: visual inspection normal Other: 4-5 mm firm nontender sebaceous gland cyst lower left labia General: Yes bladder normal to palpation External Female Exam: normal appearance of the urethra Speculum Exam - Vagina: normal appearance of the vagina, normal palpation and normal vaginal discharge Speculum Exam - Cervix: normal appearance of the cervix and normal palpation Bimanual exam- vagina & uterus: normal bimanual exam, normal palpation, uterine size normal, bladder normal to palpation, normal palpation, uterine shape normal and non-tender Bimanual Exam- Adnexa, other: normal adnexae Neuro General: patient oriented x3 Results AMB Urinalysis, Automated UA Leukoctes Candace/uL Last Edit by Tori Tai LPN on 03/29/25 12:11 UA Nitrite Last Edit by Tori Tai LPN on 03/29/25 12:11 UA Urobilinogen mg/dL Last Edit by Tori Tai LPN on 03/29/25 12:11 UA Protein 1 mg/dL Last Edit by Tori Tai LPN on 03/29/25 12:11 UA pH Last Edit by Tori Tai LPN on 03/29/25 12:11 UA Blood [place]/uL Last Edit by Tori Tai LPN on 03/29/25 12:11 UA Specific [place] 1.010 Last Edit by Tori Tai LPN on 03/29/25 12:11 UA Ketone Last Edit by Tori Tai LPN on 03/29/25 12:11 UA Bilirubin mg/dL Last Edit by Tori Tai LPN on 03/29/25 12:11 UA Glucose mg/dL Last Edit by Tori Tai LPN on 03/29/25 12:11 Assessment & Plan Assessment & Plan (1) Sebaceous gland hyperplasia: Code(s): L73.8 - Other specified follicular disorders Plan: Exam findings-sebaceous gland. Reviewed normal findings with the use of Internet pictures. Reviewed HPV progression and recession, importance of monitoring status with her follow up in June. (2) Frequency of urination: Code(s): R35.0 - Frequency of micturition Plan: Urine dip did not indicate infectious process. Advised to continue to hydrate well. The patient expressed understanding and agreement with the plan of care. All of her questions and concerns were addressed to the best of my ability. (3) Vaginal odor: Code(s): N89.8 - Other specified noninflammatory disorders of vagina Plan Discussed: chlamydia and BV panel obtained, await results for final plan of care. The patient expressed understanding and agreement with the plan of care. All of her questions and concerns were addressed to the best of my ability. This note is constructed using voice recognition software. While every effort has been made to ensure accuracy, sheet rock nailer errors may have been included. Orders: Orders CT NG by PCR Vag/Cerv Today N89.8 - Other specified noninflammatory disorders of vagina AMB Urinalysis Automated Today N89.8 - Other specified noninflammatory disorders of vagina Bacterial Vaginosis Panel Today N89.8 - Other specified noninflammatory disorders of vagina Coding Level of Care Code Est Pt Level 3 (75765) Diagnoses Sebaceous gland hyperplasia L73.8 Frequency of urination R35.0 Vaginal odor N89.8
[2025-03-29 11:25] VITALS: BMI 27.5
--- OUTSIDE RECORDS SUMMARY | 2025-03-29 15:34 | XMS_ITS | Clinical Summary ---
Author Organization [facility] ity Address [address] [place] [address] Care Team Providers Care Senior Safety Support Manager Name Role Phone Unavailable Primary Care Provider Unavailabl e Social History Tobacco Use Types Packs/Day Years Used Date Smoking Tobacco: Never Assessed Comments Unknown Sex and Gender Information Value Date Recorded Sex Assigned at Not on file Legal Sex Female 2:58 AM EST Gender Identity Not on file Sexual Orientation Not on file Plan of Treatment Health Maintenance Due Date Last Done Comments DTaP,Tdap,and Td Vaccines (1 - Tdap) 12/16/2007 Hepatitis B Vaccines (1 of 3 - 19+ 3-dose series) 12/16/2007 Cervical Cancer Screening: P ap Smear 2009 Depression Screening 07/19/2024 COVID-19 Vaccine ( - 2023-2 5 season) 2025 Influenza Vaccine (#1) 2025 HIB Vaccines Aged Out No longer eligi ble based on patient's age to complete this topic HPV Vaccines Aged Out No longer eligi ble based on patient's age to complete this topic Hepatitis A Vaccines Aged Out No long er eligible based on patient's age to complete this topic IPV Vaccines Aged Out No longer eligi ble based on patient's age to complete this topic MMR Vaccines Aged Out No longer eligi ble based on patient's age to complete this topic Meningococcal ACWY Vaccine Aged Out N o longer eligible based on patient's age to complete this topic Meningococcal B Vaccine Aged Out No l onger eligible based on patient's age to complete this topic Pneumococcal Vaccine: Pediat rics (0 to 5 Years) and At-Risk Patients (6 to 49 Years) Aged Out No longer eligible b ased on patient's age to complete this topic RSV Immunization Patients Un yadiel 20 months Aged Out No longer eligible b ased on patient's age to complete this topic Varicella Vaccines Aged Out No longer eligible based on patient's age to complete this topic
== END 2025-03-29 12:43 | disposition home or self-care (01) ==
LOC: HO.HWS 11:15
PROVIDERS: PCP Internal Medicine; Visit Provider Advanced Practice Midwife
DX: L73.8 Other specified follicular disorders (principal); R35.0 Frequency of micturition; N89.8 Other specified noninflammatory disorders of vagina
CPT/HCPCS: 99213

== ENCOUNTER 2025-03-29 11:52 | Outpatient (REF) | payer OTHER, SELFPAY | END 2025-03-29 11:53 | disposition home or self-care (01) | LOC: HO.LAB 11:52 | PROVIDERS: Visit Provider Advanced Practice Midwife | DX: Z13.89 Encounter for screening for other disorder (principal) ==

== ENCOUNTER 2025-06-29 14:11 | Outpatient (REF) | payer OTHER, SELFPAY ==
[2025-06-29 22:56] LABS: Bacterial Vaginosis PCR NEGATIVE (Negative); Candida Group PCR NOT DETECTED (Not Detect); Candida glab krusei PCR NOT DETECTED (Not Detect); Trichomonas vaginalis PCR NOT DETECTED (Not Detect)
[2025-06-29 23:14] LABS: CT PCR NOT DETECTED (Not Detect.); NG PCR NOT DETECTED (Not Detect.)
== END 2025-06-29 14:12 | disposition home or self-care (01) ==
LOC: HO.LNP 14:11
PROVIDERS: PCP Internal Medicine; Visit Provider Advanced Practice Midwife
DX: Z01.419 Encounter for gynecological examination (general) (routine) without abnormal findings (principal); R87.610 Atypical squamous cells of undetermined significance on cytologic smear of cervix (ASC-US); R87.618 Other abnormal cytological findings on specimens from cervix uteri; Z20.2 Contact with and (suspected) exposure to infections with a predominantly sexual mode of transmission
CPT/HCPCS: 81515; 87491; 87591; 87626; 88175

== ENCOUNTER 2025-06-29 14:11 | Outpatient (AMB) | payer OTHER, SELFPAY ==
--- NOTE | 2025-06-29 14:25 | A.OFFVIS_ITS ---
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 Technical Sales Representative Required: Yes Technical Sales Representative Language: German Grinder Set Up Operator Centerless: Grinder Set Up Operator Centerless Present (Mary) Accompanied by: Self / Same As Patient Allergies shellfish derived Allergy (Unknown, Verified 03/29/25 11:27) Anaphylaxis fluoxetine Adverse Reaction (Intermediate, Verified 03/29/25 11:27) Anxiety Medication List - Last Reconciled 06/29/25 by Lori Lemus CNM No Known Home Meds Is last menstrual period known: Yes Last menstrual period: 05/29/25 Post menopausal: No Patient : No HPI HPI HEART SPECIALIST annual exam: Details: 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 She is concerned and does not understand how the body can fight the virus and why it just showed up last year. She has had a new partner for about 2 years who was for 14 or 15 years on does not have insurance. New discussion at the very end of the visit she shared that he developed venereal warts. [facility] Medical History Recurrent major depression Anxiety and depression Vaginal discharge Vaginal odor Pelvic pain in female Heavy menstrual bleeding Gonorrhea contact, treated Dysuria UTI (urinary tract infection) Bacterial vaginosis Trichomoniasis Trichomonas contact, treated Scoliosis Tobacco abuse Surgical History History of section History of tubal ligation Family History Mother No problems noted. Father No problems noted. Paternal Grandfather Colon cancer Family/Other Colon cancer Paternal Grandmother Breast cancer Paternal Aunt Breast cancer Other Mental health disorder Social History Housing: Apartment Alcohol intake: never Patient Tobacco Use Status: Former Tobacco user Cigarettes Per Day: 1 Years Smoked: stopped cigarettes 2021, smoke weed 2019 e-Cigarette/Vaping Use: Never Used Second Hand Smoke Exposure: Yes Substance Use Type: Marijuana Patient : No service: No Current occupational status: employed Gender identity: Female Cognitive needs: No Hearing needs: No Vision needs: Yes (Glasses) Female Reproductive History Menstrual Age of Menarche: 7 Date of last menstrual period: 05/29/25 control method: permanent sterilization Total pregnancies: 2 Full term: 2 Date of last pap smear: 06/14/24 (postive papsmear, positive hpv ) Physical Exam Vital Signs: Last Vital Signs BP 128/88 06/29/25 15:09 BMI result Body Mass Index 27.5 Const General: healthy appearing, comfortable, no acute distress, well developed and alert Nutritional Appearance: average body habitus Orientation/consciousness: patient oriented x3 Limitations: no limitations HEENT Head: Yes normocephalic Neck Neck: Yes normal visual inspection Chest Chest palpation & inspection: normal inspection of the chest Breast/axilla inspection: normal inspection of the breasts and normal inspection of the axillae Breast/axilla palpation: normal palpation of the breasts and normal palpation of the axillae Resp Effort & Inspection: normal respiratory effort GI Inspection: Yes normal to inspection, No Abdominal wall edema and No distended Palpation (GI): Soft to palpation and nontender Other: External exam within normal limits vagina is pink and moist. Nulliparous cervix pink smooth healthy appearing friable with the Pap no abnormal discharge Bimanual cervix mobile nontender uterus midposition mobile nontender adnexa nontender good tone with Kegel. General: Yes bladder normal to palpation External Female Exam: normal external appearance and normal appearance of the urethra Speculum Exam - Vagina: normal appearance of the vagina, normal palpation and normal vaginal discharge Speculum Exam - Cervix: normal appearance of the cervix, normal palpation and nontender Bimanual exam- vagina & uterus: normal bimanual exam, normal palpation, uterine size normal, bladder normal to palpation, consistency normal, normal palpation, uterine mobility normal, uterine shape normal, No Cervical tenderness present, non-tender and no cervical motion tenderness Bimanual Exam- Adnexa, other: normal adnexae, no masses, normal and No adnexal tenderness Neuro General: patient oriented x3 Results Reviewed Results Reviewed: Name: Ernesto PelaezTiff Age/Sex: 33/F Attending: Lori Lemus CNM : 1990 Submitted by: Lori Lemus CNM Copies to: MR #: [id number] Status: DEP REF Collected: 06/14/24 Location: [facility] Received: 06/19/24 Interpretation General Category: Epithelial cell abnormality. Adequacy: Endocervical component present. Interpretation: Atypical squamous cells; cannot rule out high grade lesion. HPV High Risk: Negative HPV Genotyping 16: Positive HPV Genotyping 18: Negative Clinical Information LMP: 05/25/2024 Previous PAP test: 2020, neg, abnormal Material Received ThinPrep-Cervical Electronically Signed By: Jonnie Cleary MD 06/23/24 1115 As of May 10, 2024, the technical services to include automated prescreening performed by the ThinPrep Imaging System, PAP screening and HPV testing will be performed at [facility] (CLIA #[id number]), [address] [place] [address]. Testing for HPV was performed using the Kezia SHENA [id number] system. The presence of HPV in the female genital tract is associated with a number of diseases, including cervical carcinoma. The HPV DNA high risk pool tests for HPV 31, 33, 35, 39, 45, 51, 52, 56, 58, 59, 66 and 68. The testing for HPV 16 and 18 genotypes has also been performed. A positive result indicates detection of nucleic acid sequences from one or more subtypes, whereas a negative result indicates such sequences were not detected. All professional services are performed by [facility] ([address] [place] [id number]; ; CLIA #[id number]). The PAP Test is a screening procedure with the inherent possibility of both false negative and false positive results. Results should be interpreted in the context of historic and current clinical findings. Reliability of the PAP Test is enhanced by performing the test on a regular repetitive basis. Patient: Tiff Grover Age/Sex: 33/F MR#: [id number] Page 1 of 1 Name: Tiff Grover Age/Sex: 33/F Attending: Liu Hi MD : 1990 Submitted by: Liu Hi MD Copies to: Jaziel De La Vega MD MR #: [id number] Status: DEP REF Collected: 06/27/24 Location: [facility] Received: 06/28/24 Diagnosis A. Endocervix, curettage: Small superficial fragments of endocervical mucosa within normal limits. B. Cervix, 5 o'clock, biopsy: Squamous mucosa and endocervical epithelium within normal limits. C. Cervix, 6 o'clock, biopsy: Inflamed squamous and endocervical mucosa with reactive changes. D. Cervix, 7 o'clock, biopsy: Squamous mucosa and endocervical epithelium within normal limits. E. Cervix, 12 o'clock, biopsy: Inflamed squamous and endocervical mucosa with reactive changes. COMMENT: The atypical cells in the patient's recent Pap/cytology specimen ([id number]; ASC-H with positive HPV 16) are not definitively represented in the current samples. Clinical History ASC-H Microscopic Description A-E. Microscopic sections reviewed. Material Received A. ECC B. Cx bx 5 o'clock C. Cx bx 6 o'clock D. Cx bx 7 o'clock E. Cx bx 12 o'clock Gross Description Received in five parts. Part A: Received in formalin labeled ?ECC? is a 0.2 x 0.2 x 0.1 cm aggregate of predominantly mucus and blood with minute shards of red-maroon tissue, submitted in toto in a cassette labeled A. Part B: Received in formalin labeled ?cx bx 5? is a 0.25 cm kwon-white rubbery, wedge-shaped fragment of mucosa, submitted in toto in a cassette labeled B. Part C: Received in formalin labeled ?cx bx 6? is a 0.3 cm rubbery kwon-white wedge-shaped fragment of mucosa, submitted in toto in a cassette labeled C. Patient: Tiff Grover Age/Sex: 33/F MR#: [id number] Page 1 of 2 Surgical Pathology [id number] Part D: Received in formalin labeled ?cx bx 7? is a 0.45 cm rubbery, kwon-diaz wedge-shaped fragment of mucosa, submitted in toto in a cassette labeled D. Part E: Received in formalin labeled ?cx bx 12? is a 0.35 cm rubbery, kwon-diaz wedge-shaped fragment of mucosa submitted in toto in a cassette labeled E. CEDS This case was reviewed intradepartmentally. Copies To Jaziel De La Vega MD [facility] Primary Care,[address] [place] [address] Liu Hi MD [facility] [address] [place] [address] Drive [address] [place] [address] NOTE: Unless otherwise stated, all tissue is formalin-fixed and paraffin- embedded. Some or all of the immunohistochemical tests reported herein may have been developed and their performance characteristics determined by [facility]. They have not been cleared or approved by the U.S. Food and Drug Administration (FDA). However, the FDA has determined that such clearance or approval is not necessary. This laboratory is certified under the Clinical Laboratory Improvement Amendments of 1988 (CLIA) as qualified to perform high complexity clinical laboratory testing. Electronically Signed By: Jonnie Cleary MD 07/03/24 2116 Patient: Tiff Grover Age/Sex: 33/F MR#: [id number] Assessment & Plan Assessment & Plan (1) Abnormal Papanicolaou smear of cervix with positive human papilloma virus (HPV) test: Comment: 06/14/2024 Pap shows ASC -H HPV 16 positive Colpo biopsy ECC negative; Pap w Co testing done 06/29/2025..., info re Gardasil given patient considering.... Code(s): R87.618 - Other abnormal cytological findings on specimens from cervix uteri Category: Medical (2) Pap smear cannot exclude high grade squamous intraepithelial lesion (ASC-H): Comment: HPV 16 positive/HPV 18 negative Code(s): R87.610 - Atypical squamous cells of undetermined significance on cytologic smear of cervix (ASC-US) Category: Medical Plan -----Discussed in this visit the following: healthy balanced diet, regular and consistent exercise, getting recommended health screens, doing the best she can for her particular health concerns, kegel exercises, pap smear screening and followup recommendations, mammography screening and SBE, normal changes in cycles in her life stage--- . Patient had lots of questions about how the HPV virus can clear or the abnormal cells can clear. Discussed how the body's immune system can sometimes clear the virus but that is certainly having had it show a warrants proper surveillance so we would never be correct to allow years pass without having . testing done. She is aware that she had the HPV virus 16 and she had been doing some research about it is not likely to have had the HPV vaccine given when she was born. I did give her information about the Gardasil vaccine it will not protect against a virus she already has evidence that she has contracted but it might offer some protection against other subtypes she is going to think about it and she is going to double check her Children's pediatric records to make sure that both her boys and girls are vaccinated. Testing also done for STIs at the very end of the visit she shared that her partner of 2 years developed venereal warts. There is no way to know whether not he passed the virus to her or vice versa. I do think it is still a very good idea that they use condoms to protect from other sharing as it will never be known where it originated.. She may call in 1 week if she has not heard about the results of the Pap smear otherwise we would just send a letter if it is negative but in her case she is very curious and would want to know affirmatively that it is okay. Testing also done for gonorrhea chlamydia trichomoniasis bacterial vaginosis and yeast. . Coding Level of Care Code Est Pt Prev Care 18-39y(29662) Diagnoses Abnormal Papanicolaou smear of cervix with positive human papilloma virus (HPV) test R87.618 Pap smear cannot exclude high grade squamous intraepithelial lesion (ASC-H) R87.041
[2025-06-29 15:09] VITALS: BP 128/88; BMI 27.5
--- OUTSIDE RECORDS SUMMARY | 2025-06-29 19:30 | XMS_ITS | Clinical Summary ---
Author Organization [facility] [employer] [facility] it Address [address] [place] [address] Care Team Providers Care Green Marketer Name Role Phone Unavailable Primary Care Provider [...] Cervical Cancer Screening: P ap Smear 2009 HPV Vaccines (1 - 3-dose SCD M series) 12/16/2015 Depression Screening 07/19/2024 COVID-19 Vaccine (1 - 2024-2 6 season) 2025 Influenza Vaccine (#1) 2025 RSV Immunization Adult Patie nts (1 - 1-dose 75+ series) 12/16/2063 HIB Vaccines Aged Out No longer eligi [...]
== END 2025-06-29 15:56 | disposition home or self-care (01) ==
LOC: HO.HWS 14:12
PROVIDERS: PCP Internal Medicine; Visit Provider Advanced Practice Midwife
DX: Z01.419 Encounter for gynecological examination (general) (routine) without abnormal findings (principal); R87.618 Other abnormal cytological findings on specimens from cervix uteri; R87.610 Atypical squamous cells of undetermined significance on cytologic smear of cervix (ASC-US)
CPT/HCPCS: 99395; 99459